=== PATIENT | male | born 1985 | race African-American/Black ===

== ENCOUNTER 2019-01-25 13:57 | Emergency (ER) | payer SELFPAY ==
[~2019-01-25] VITALS: Ht 182.9 cm; Wt 98.0 kg
[~2019-01-25 13:57] MED LIST: ACET-3161
[2019-01-25] MEDS ORDERED: KETOROLAC 60MG/2ML VIAL IM ONE (15:45)
[2019-01-25 15:56] VITALS: BP 139/66
== END 2019-01-25 16:41 | disposition home or self-care (01) ==
LOC: ER 16:23
DX: G89.29 Other chronic pain (principal); M54.5 Low back pain; F12.10 Cannabis abuse, uncomplicated; Z98.890 Other specified postprocedural states; Z87.11 Personal history of peptic ulcer disease
CPT/HCPCS: 96372; 99283; J1885

== ENCOUNTER 2021-10-20 04:44 | Emergency (ER) | payer BC ==
[~2021-10-20] VITALS: Ht 182.9 cm; Wt 118.0 kg
[2021-10-20 07:15] LABS: CLARITY URINE CLEAR (CLEAR); COLOR URINE YELLOW (YELLOW); KETONES URINE NEGATIVE (NEGATIVE); LEUKOCYTE ESTERASE URINE TRACE (NEGATIVE); NITRITE URINE NEGATIVE (NEGATIVE); OCCULT BLOOD URINE NEGATIVE (NEGATIVE); PROTEIN URINE NEGATIVE (NEGATIVE); SPECIFIC GRAVITY URINE 1.025 (1.005-1.030); UROBILINOGEN URINE 0.2 E.U./dL (0.2-1.0)
[2021-10-20] MEDS ORDERED: DOXY100C5 MT (08:20)
[2021-10-20] MEDS ORDERED: CEFTRIAXONE SODIUM 500 MG/VIAL IM ONE (08:30)
[2021-10-20 08:45] VITALS: BP 121/75
[2021-10-23 17:06] LABS: NEISSERIA GONORRHOEAE NAA Negative (Negative)
== END 2021-10-20 08:55 | disposition home or self-care (01) ==
LOC: ER 04:44
DX: N41.9 Inflammatory disease of prostate, unspecified (principal); Z87.11 Personal history of peptic ulcer disease
CPT/HCPCS: 76870; 81003; 87491; 87591; 93976; 96372; 99284; J0696; Z7610